=== PATIENT | male | born 1980 | race Caucasian/White ===

== ENCOUNTER 2018-07-01 21:03 | Emergency (ER) | payer SELFPAY ==
[~2018-07-01] VITALS: Ht 172.7 cm; Wt 72.0 kg
[2018-07-01 21:08] VITALS: BP 148/89; PULSE 104; RESP 18; Ht 172.7 cm; Wt 72.0 kg
[2018-07-02] MEDS ORDERED: HYDROCODONE/APAP (5/325) TAB PO ONE (01:00)
--- NOTE | 2018-07-02 01:10 | ERD ---
ER Documentation Chief Complaint Chief Complaint HEADACHE X2 DAYS AFTER METH USE HPI 37-year-old male with history of meth use presents with headache. States that he was using meth 2 days ago and has had a headache since. States the headache is currently 10 out of 10. Headache is located in the back of his head. Denies any numbness, weakness, vision problems, syncope. Denies medical problems. Denies allergies. ROS All systems reviewed and are negative except as per history of present illness. Allergies Allergies: Coded Allergies: No Known Allergy (Unverified , 07/01/18) PMhx/Soc Medical and Surgical Hx: pt denies Medical Hx, pt denies Surgical Hx Hx Alcohol Use: Yes Hx Substance Use: Yes Hx Tobacco Use: Yes Smoking Status: Current every day smoker FmHx Family History: No diabetes, No coronary disease, No other Physical Exam Vitals Physical Exam Const: No acute distress Head: Atraumatic Eyes: Normal Conjunctiva ENT: Normal External Ears, Nose and Mouth. EOMs intact. PERRLA. Neck: Full range of motion. No meningismus. Resp: Clear to auscultation bilaterally Cardio: Regular rate and rhythm, no murmurs Abd: Soft, non tender, non distended. Normal bowel sounds Skin: No petechiae or rashes Back: No midline or flank tenderness Ext: No cyanosis, or edema Neur: Awake and alert Psych: Normal Mood and Affect Neuro: M/S: Alert and oriented Face: EOMI, face and pharynx with normal sensation and function Motor: Normal strength throughout Sensation: Normal sensation throughout Speech: Normal Cerebel: Normal coordination Normal gait Normal finger to nose DTR: 2+ and symmetric upper/lower extremities Results 24 hrs Current Medications Medications Dose Sig/Ann Start Time Status Last (Trade) Ordered Route PRN Stop Time Admin Dose Reason Admin 1 tab ONCE ONCE 07/02/18 DC 07/02/18 Acetaminophen PO 01:00 01:07 / 07/02/18 01:01 Hydrocodone Bitart ([place] (5/325)) Procedures/MDM Patient eloped before exam was complete. Departure Diagnosis: Primary Impression: Eloped from emergency department Condition: LUIS ANTONIO Wong Jul 02, 2018 01:10
== END 2018-07-02 04:59 | disposition left against medical advice (07) ==
LOC: FTE 21:03
DX: R51 Headache (principal); F17.210 Nicotine dependence, cigarettes, uncomplicated
CPT/HCPCS: 99283